=== PATIENT | male | born 1990 | race Caucasian/White ===

== ENCOUNTER 2020-02-06 19:14 | Emergency (ER) | payer SELFPAY ==
[~2020-02-06] VITALS: Ht 172.7 cm; Wt 66.2 kg
[2020-02-06 19:34] VITALS: BP 142/92
--- NOTE | 2020-02-06 19:51 | NUR ---
pt ambualted to bed 9 with steady gait.
[2020-02-06] MEDS ORDERED: cefTRIAXone 250 MG in LIDOCAINE MPF 1% 0.9 ML IM ONE (20:00)
[2020-02-06] MEDS ORDERED: AZITHROMYCIN 250 MG TAB PO ONE (20:00)
[2020-02-06] MEDS ORDERED: LIDOCAINE MPF 1% 5 ML ONE (20:08)
[2020-02-06] MEDS ORDERED: cefTRIAXone 250 MG VIAL ONE (20:08)
[2020-02-06] MEDS ORDERED: IBUPROFEN 600 MG TAB PO ONE (20:10)
[2020-02-06 20:30] VITALS: BP 142/92
--- NOTE | 2020-02-06 20:30 | NUR ---
Patient discharged with v/s stable. Written and verbal after care instructions given and explained. Patient alert, oriented and verbalized understanding of instructions. Ambulatory with steady gait. All questions addressed prior to discharge. ID band removed. Patient advised to follow up with PMD. Rx of IBUPROFEN, BACITRACIN given. Patient educated on indication of medication including possible reaction and side effects. Opportunity to ask questions provided and answered.
--- NOTE | 2020-02-06 20:33 | NUR ---
29 Y/O MALE C/O PAINFUL URINATION X 3 DAYS WITH PINK COLOR URINE AND DISCHARGE; PT STATES PAIN IS FELT AT THE BEGINNING AND END OF URINATION; PT STATED HAD UNPROTECTED SEX 4 DAYS AGO; PAIN 03/15; DENIES N/V/D; SKIN IS PINK/WARM/DRY; AAOX4 WITH EVEN AND STEADY GAIT; HR EVEN AND REGULAR; PT DENIES ANY FEVER, CP, SOB, OR COUGH AT THIS TIME; VSS; PATIENT POSITIONED FOR COMFORT; HOB ELEVATED; BEDRAILS UP X2; BED DOWN AND LOCKED PMH: PT DENIES NKA
[2020-02-10 06:07] LABS: CHLAMYDIA TRACHOMATIS AMP DNA Negative (Negative)
--- NOTE | 2020-02-10 19:35 | NUR ---
PER DR. GARZA - NO OTHER MEDICAL TX NECESSARY.
== END 2020-02-06 20:30 | disposition home or self-care (01) ==
LOC: MED 19:14
DX: R30.0 Dysuria (principal); R36.9 Urethral discharge, unspecified
CPT/HCPCS: 36415; 81002; 87491; 96372; 99283; J0696; J2001